=== PATIENT | male | born 1990 | race African-American/Black ===

== ENCOUNTER 2017-12-03 10:32 | Observation (INO) | payer SELFPAY ==
[~2017-12-03] VITALS: Ht 190.5 cm; Wt 83.9 kg
[2017-12-03] MEDS ORDERED: SODIUM CHLORIDE 0.9% 1,000 ML IVB ONE (10:40)
[2017-12-03] MEDS ORDERED: LORazepam 2MG/ML-1ML VIAL IV ONE ×2 (10:45→11:45)
[2017-12-03 11:12] VITALS: BP 125/64
[2017-12-03] MEDS ORDERED: LORazepam 2MG/ML-1ML VIAL ONE (11:33)
[2017-12-03 11:40] LABS: Basophils # (auto) 0 uL; Basophils % (auto) 0.1 % (0.0-2.0); Eosinophils # (auto) 0.4 uL; Eosinophils % (auto) 9.1 % (0.0-7.0); Hematocrit 41.7 % (41.0-53.0); Hemoglobin 14.1 g/dL (13.5-17.5); Lymphocytes % (auto) 45.2 % (10.0-50.0); Mean Corpuscular Hemoglobin 30.4 pg (28.0-32.0); Mean Corpuscular Hgb Conc. 33.8 g/dL (32.0-36.0); Monocytes # (auto) 0.4 uL; Monocytes % (auto) 9.4 % (0.0-12.0); Neutrophils # (auto) 1.6 uL; Neutrophils % (auto) 36.2 % (37.0-80.0); Nucleated Red Blood Cells % 0.2 %; Platelet Count (auto) 273 10^3/uL (140-450); Red Blood Cells 4.63 10^6/uL (4.5-5.90); Red Cell Distribution Width 14.2 % (11.8-14.3); White Blood Cell 4.4 10^3/uL (4.4-10.8)
[2017-12-03 12:05] LABS: Alanine Aminotransferase 57 U/L (16-61); Albumin 3.8 g/dL (3.4-5.0); Alkaline Phosphatase 61 U/L (45-117); Anion Gap 4 (5-15); Aspartate Aminotransferase 26 U/L (15-37); BUN/Creatinine Ratio 10.3; Bilirubin, Total 0.4 mg/dL (0.2-1.0); Blood Alcohol < 3.0 mg/dL (0-5); Blood Urea Nitrogen 10 mg/dL (7-18); Calcium 8.2 mg/dL (8.5-10.1); Carbon Dioxide 26 mmol/L (21-32); Chloride 110 mmol/L (98-107); GFR African American 118 mL/min; GFR Non-African American 97 mL/min; Glucose 77 mg/dL (74-106); Magnesium 2.1 mg/dL (1.6-2.6); Sodium 140 mmol/L (136-145); Total Protein 6.9 g/dL (6.4-8.2)
== END 2017-12-03 12:42 | disposition left against medical advice (07) | DRG 101 ==
LOC: EDBD 10:32 → ER 10:35 → OVERFLOW 10:36 → ER 12:09
PROVIDERS: ADMIT Emergency Medicine; ATTEND Emergency Medicine
DX: G40.909 Epilepsy, unspecified, not intractable, without status epilepticus (principal); K21.9 Gastro-esophageal reflux disease without esophagitis; F17.210 Nicotine dependence, cigarettes, uncomplicated; F12.10 Cannabis abuse, uncomplicated
CPT/HCPCS: 36415; 80053; 80156; 80320; 83735; 85025; 96374; 96376; 99285; G0378; J2060; J7030; 80307; A4565

== ENCOUNTER 2017-12-03 18:39 | Emergency (ER) | payer SELFPAY ==
[~2017-12-03] VITALS: Ht 193 cm; Wt 83.9 kg
[2017-12-03] MEDS ORDERED: LORazepam 2MG/ML-1ML VIAL ONE (18:53)
[2017-12-03] MEDS ORDERED: LORazepam 2MG/ML-1ML VIAL IM ONE (21:15)
[2017-12-03 21:21] VITALS: BP 129/81
[2017-12-03] MEDS ORDERED: NOREPINEPHRINE 8 MG/250ML KIT 250 ML IV ONE (22:05)
== END 2017-12-03 22:18 | disposition left against medical advice (07) ==
LOC: EDBD 18:39 → ER 18:39
DX: R56.9 Unspecified convulsions (principal); F17.210 Nicotine dependence, cigarettes, uncomplicated; F12.10 Cannabis abuse, uncomplicated; K21.9 Gastro-esophageal reflux disease without esophagitis
CPT/HCPCS: 96372; 99283; J2060